=== PATIENT | female | born 1975 | race Caucasian/White ===

== ENCOUNTER 2019-01-04 07:00 | Inpatient (IN) ==
[2019-01-04] MEDS ORDERED: STADOL IV PRN ×2 (19:17)
[2019-01-04] MEDS ORDERED: BRETHINE SUBQ PRN (19:17)
[2019-01-04] MEDS ORDERED: REGLAN PO PRN (19:17)
[2019-01-04] MEDS ORDERED: ZOFRAN IV PRN (19:17)
[2019-01-04] MEDS ORDERED: PEPCID PO PRN ×2 (19:17)
[2019-01-04] MEDS ORDERED: TYLENOL PO PRN (19:17)
[2019-01-04] MEDS ORDERED: PEPCID IV PRN (19:17)
[2019-01-04] MEDS ORDERED: AMBIEN PO PRN (19:17)
[2019-01-04] MEDS: LR 1,000 ML IV SCH (20:30)
[2019-01-04] MEDS ORDERED: CYTOTEC VAG ONE (21:00)
[2019-01-04 21:10] LABS: BASO# 0.06 X1000 (0.0-0.2); BASO% 0.4 % (0.0-0.8); EOS# 0.32 X1000 (0.0-0.7); EOS% 2.1 % (0.0-10.0); HEMATOCRIT 35.7 % (37.0-47.0); IMM GRAN# 0.17 X1000 (0.0-0.04); IMM GRAN% 1.1 % (0.0-0.5); LYMPH# 4.11 X1000 (1.2-3.4); LYMPH% 26.4 % (20.5-51.1); MCH 29.6 PG (27-31); MCHC 33.6 g/dL (33-37); MCV 87.9 FL (81-99); MONO# 1.27 X1000 (0.11-0.59); MONO% 8.2 % (1.7-9.3); NEUT# 9.62 X1000 (1.4-6.5); NEUT% 61.8 % (42.2-75.2); PLT 533 X1000 (130-400); RBC 4.06 XMIL (4.2-5.4); RDW 13.9 % (11.5-14.5); WBC 15.55 X1000 (4.8-10.8)
[2019-01-04] MEDS ORDERED: CYTOTEC ONE (21:55)
[2019-01-05] MEDS: CYTOTEC VAG SCH ×3 (01:55→12:51)
--- NOTE | 2019-01-05 05:24 | HISTORY AND PHYSICAL ---
HISTORY OF PRESENT ILLNESS: The patient is a 43-year-old G4, P2, 0-1-2 at 40 weeks gestation who presents to Labor and Delivery for induction of labor. The patient reports good movement. Denies regular contractions, leakage of fluid or vaginal bleeding. Current complicated by an abnormal quad screen. Patient was followed by Maternal Medicine during , and assessing for growth and abnormalities. The patient was counseled on abnormal quad screen, and offered additional screening using cell free DNA testing. The patient declined, and also declined diagnostic testing. CURRENT MEDICATIONS: Include vitamins. PAST MEDICAL HISTORY: Includes depression and anxiety. PAST SURGICAL HISTORY: None. 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 OBSTETRICAL HISTORY: , 2 term vaginal deliveries, 1 SAB FAMILY HISTORY: non contributory. SOCIAL HISTORY: Denies alcohol, or drug use. Positive tobacco use 1/2 ppd ALLERGIES: Penicillins, unknown reaction. PHYSICAL EXAMINATION: VITAL SIGNS: Temperature 97.1 degrees Fahrenheit, blood pressure 124/85, pulse rate 83, weight 222 pounds, height 5 feet 9 inches, and BMI 32.8 kg/m2. GENERAL: No acute distress. Alert, awake, and oriented x3. CARDIOVASCULAR: Regular rate and rhythm. Positive S1, S2. RESPIRATORY: Clear to auscultation bilaterally. ABDOMEN: Gravid, soft. Nontender to palpation. EXTREMITIES: No calf tenderness. heart rate via Doppler 140 beats per minute. PELVIC: Vaginal exam 0 cm dilated, 0% effaced, and -3 station. LABORATORIES: GBS negative. ASSESSMENT: Mrs. Vieira is a 43-year-old, , at 40 weeks gestation who presents for scheduled induction of labor. PLAN: 1. Admit to Labor and Delivery for planned scheduled induction. We will induce with Cytotec per vagina 25 mcg q.4 hours. Plan for augmentation with possible AROM and Pitocin. 2. Continuous monitoring. 3. Obtain routine labor labs. 4. Pain management with IV pain medications and/or epidural per patient request. 5. Patient counseled on risks and benefits of induction of labor and risk of vaginal delivery which includes things such as bleeding, laceration, need for blood transfusion, and need for emergent section with risk of section discussed in depth with the patient such as bleeding, infection, possible injury to surrounding organs, postoperative pain and disability. The patient expressed understanding. All questions answered and addressed. 6. Estimated weight 8.5 pounds. 7. Anticipate vaginal delivery. 8. Counseled on risks of depression. Will monitor closely GILDA
[2019-01-05] MEDS ORDERED: XYLOCAINE-MPF 1% INJ PRN ×2 (07:13→22:58)
[2019-01-05] MEDS ORDERED: MINERAL OIL TOP PRN (07:13)
[2019-01-05] MEDS ORDERED: FENTANYL-BUPIV-NS 2 MCG-0.1% 250 ML EPIDURAL PRN (07:54)
[2019-01-05] MEDS ORDERED: NAROPIN 0.2% INJ ONE (08:00)
[2019-01-05] MEDS ORDERED: FENTANYL IV ONE (08:00)
[2019-01-05] MEDS: LR 1,000 ML IV SCH (08:14)
[2019-01-05] MEDS: PITOCIN 30 UNITS/NS 30 UNIT/500 ML IV.SOLN IV SCH ×2 (09:59→20:34)
[2019-01-05] MEDS: STADOL IV PRN ×2 (11:55→14:54)
[2019-01-05] MEDS ORDERED: MINERAL OIL PO PRN (22:58)
[2019-01-05] MEDS ORDERED: AMBIEN PO PRN (22:58)
[2019-01-05] MEDS ORDERED: ATARAX PO PRN (22:58)
[2019-01-05] MEDS ORDERED: PITOCIN IM PRN (22:58)
[2019-01-05] MEDS ORDERED: BENADRYL IV PRN (22:58)
[2019-01-05] MEDS ORDERED: PERI MEDS (DERMOPLAST/NUPERCAINAL/TUCKS) MISC PRN (22:58)
[2019-01-05] MEDS ORDERED: BENADRYL PO PRN (22:58)
[2019-01-05] MEDS ORDERED: HYDROXYZINE IM PRN (22:58)
[2019-01-05] MEDS ORDERED: M-M-R II VACCINE SUBQ ONE (22:58)
[2019-01-05] MEDS ORDERED: BOOSTRIX VACCINE IM ONE (22:58)
[2019-01-05] MEDS ORDERED: CYTOTEC PO PRN (22:58)
[2019-01-05] MEDS ORDERED: PITOCIN 20 UNITS/NS 20 UNITS/1,000 ML IV.SOLN IV SCH (23:00)
[2019-01-05] MEDS ORDERED: PITOCIN 30 UNITS/NS 30 UNIT/500 ML IV.SOLN IV SCH (23:00)
[2019-01-06] MEDS: MOTRIN PO PRN ×3 (02:26→20:11)
--- NOTE | 2019-01-06 06:04 | OPERATIVE NOTE ---
PROCEDURE DATE: 01/05/2019 PROCEDURE PERFORMED: Spontaneous vaginal delivery. SURGEON: Dr. Shane Stubbs. PATIENT ASSISTANT: None. DESCRIPTION OF PROCEDURE: The patient delivered a viable male at 40 weeks gestation, weighing 8 pounds 12 ounces with Apgars of 9 and 10 at 1 and 5 minutes respectively. The vertex was delivered spontaneously over intact perineum. A tight nuchal cord was identified, and reduced after delivery of the body. The anterior shoulders were delivered atraumatically by maternal expulsive force efforts with the assistance of downward traction. The posterior shoulder delivered with maternal expulsive efforts and upward traction. The remainder of the fetus delivered spontaneously. Upon delivery, the nuchal cord was reduced. The cord was clamped and cut. The was placed on the patient's abdomen and assessed by the awaiting bar staff staff. Cord blood was obtained for blood gases to enhance uterine contractions. IV oxytocin was administered. The cervix, vagina and perineum were inspected for lacerations. A second-degree laceration was noted at the perineum and repaired with 2-0 chromic. A small vaginal bleed was noted, and hemostasis was obtained using 3-0 chromic in a figure of 8 stitch fashion. ESTIMATED BLOOD LOSS: 200 mL.
[2019-01-06 06:19] LABS: BASO# 0.05 X1000 (0.0-0.2); BASO% 0.3 % (0.0-0.8); EOS# 0.19 X1000 (0.0-0.7); HEMATOCRIT 34.9 % (37.0-47.0); HEMOGLOBIN 11.4 g/dL (12.0-16.0); IMM GRAN# 0.13 X1000 (0.0-0.04); IMM GRAN% 0.7 % (0.0-0.5); LYMPH# 3.37 X1000 (1.2-3.4); LYMPH% 18.6 % (20.5-51.1); MCH 28.9 PG (27-31); MCHC 32.7 g/dL (33-37); MCV 88.4 FL (81-99); MONO# 1.18 X1000 (0.11-0.59); MONO% 6.5 % (1.7-9.3); MPV 9.8 FL (7.4-10.4); NEUT# 13.21 X1000 (1.4-6.5); NEUT% 72.9 % (42.2-75.2); PLT 451 X1000 (130-400); RBC 3.95 XMIL (4.2-5.4); RDW 13.7 % (11.5-14.5); WBC 18.13 X1000 (4.8-10.8)
[2019-01-06] MEDS ORDERED: PERCOCET-5 PO PRN (06:52)
--- NOTE | 2019-01-06 14:28 | OB/GYN PROGRESS NOTE ---
Progress Note OB - . Patient Problems: Current Active Problems Problem Status Onset (spontaneous vaginal delivery) Acute OB Progress Note: Vital Signs - 24 hr 01/05/19 15:27 01/05/19 19:40 01/05/19 20:30 Temperature 96.9 F L 96.2 F L 97.2 F L Pulse Rate 79 76 96 H Respiratory Rate 16 20 20 Blood Pressure 139/79 132/81 124/85 Blood Pressure [Right Arm] 144/88 O2 Sat by Pulse Oximetry 98 100 100 01/05/19 20:40 01/05/19 20:50 01/05/19 21:00 Temperature Pulse Rate 83 75 86 Respiratory Rate 20 20 20 Blood Pressure Blood Pressure [Right Arm] 139/85 139/98 143/85 O2 Sat by Pulse Oximetry 100 100 100 01/05/19 21:10 01/05/19 21:20 01/05/19 21:30 Temperature Pulse Rate 75 74 86 Respiratory Rate 20 20 20 Blood Pressure 146/82 Blood Pressure [Right Arm] 144/83 144/88 146/82 O2 Sat by Pulse Oximetry 100 100 99 01/06/19 00:00 01/06/19 04:31 01/06/19 08:00 Temperature 96.9 F L 96.3 F L 96.5 F L Pulse Rate 106 H 75 87 Respiratory Rate 20 20 18 Blood Pressure 127/83 109/65 108/68 Blood Pressure [Right Arm] O2 Sat by Pulse Oximetry 99 99 98 01/06/19 11:28 Temperature 96.9 F L Pulse Rate 88 Respiratory Rate 18 Blood Pressure 111/74 Blood Pressure [Right Arm] O2 Sat by Pulse Oximetry 98 Laboratory Results - last 24 hr 01/06/19 05:42 WBC 18.13 H RBC 3.95 L Hgb 11.4 L Hct 34.9 L MCV 88.4 MCH 28.9 MCHC 32.7 L RDW Std Deviation 13.7 Plt Count 451 H MPV 9.8 Immature Gran % (Auto) 0.7 H Neut % (Auto) 72.9 Lymph % (Auto) 18.6 L [place] % (Auto) 6.5 Eos % (Auto) 1.0 Baso % (Auto) 0.3 Immature Gran # (Auto) 0.13 H Neut # (Auto) 13.21 H Lymph # (Auto) 3.37 [place] # (Auto) 1.18 H Eos # (Auto) 0.19 Baso # (Auto) 0.05 S: Patient without complaints. Denied fever, chills, N/V, SOB, or chest pain. Pain minimal and controlled. Voiding without difficulty. Lochia decreasing; scant. Formula-feeding by choice. Desires sterilization for contraception. O: Gen: NAD CV: RRR Pulm: CTAB; no rhonchi, wheezing, or rales Abd: soft, non TTP, non distended; active bowel sounds; fundus firm and below umbilicus Ext: no LE TTP Labs: reviewed A&P: 43yo s/p at 40w1d, 1. PPD#1 -No concerns 2. Hx of anxiety/depression -Not on any medications -patient denied psychiatric medical history - consultation ordered to evaluate 3. Tob use -Patient declined in smoking cessation -SIDS risks given 4. Rh NEGATIVE -RhoGAM workup ordered -Baby Rh positive
[2019-01-06] MEDS ORDERED: PERICOLACE PO SCH (21:00)
--- NOTE | 2019-01-07 08:31 | OB/GYN PROGRESS NOTE ---
Progress Note OB - . Patient Problems: Current Active Problems Problem Status Onset (spontaneous vaginal delivery) Acute OB Progress Note: Vital Signs - 24 hr 01/06/19 11:28 01/06/19 16:00 01/06/19 20:14 Temperature 96.9 F L 97.2 F L 96.9 F L Pulse Rate 88 86 73 Respiratory Rate 18 18 18 Blood Pressure 111/74 123/71 128/88 O2 Sat by Pulse Oximetry 98 98 01/07/19 02:04 Temperature 96.9 F L Pulse Rate 70 Respiratory Rate 18 Blood Pressure 97/61 O2 Sat by Pulse Oximetry 98 Laboratory Results - last 24 hr 01/07/19 05:15 ABO/Rh O NEGATIVE Screen NEGATIVE RhIG Candidate? YES S: Patient without complaints. No changes since yesterday. Lochia decreasing; scant. Formula-feeding by choice. Desires sterilization for contraception. O: Gen: NAD CV: RRR Pulm: CTAB; no rhonchi, wheezing, or rales Abd: soft, non TTP, non distended; active bowel sounds; fundus firm and below umbilicus Ext: no LE TTP Labs: reviewed A&P: 43yo s/p at 40w, 1. PPD#2 -No concerns -D/C home today and f/u with Dr. Stubbs in about 4 weeks - precautions discussed and when to call clinic 2. Hx of anxiety/depression -Not on any medications -patient denied psychiatric medical history -s/p SW consultation 3. Tob use -Patient declined in smoking cessation -SIDS risks given 4. Rh NEGATIVE -RhoGAM workup ordered -Baby Rh positive
[2019-01-07 08:40] VITALS: BP 136/90
[2019-01-07] MEDS ORDERED: PRECARE PO SCH (09:00)
[2019-01-07] MEDS ORDERED: PNEUMOVAX 23 IM ONE (12:30)
--- NOTE | 2019-01-07 16:36 | DISCHARGE SUMMARY ---
ADMISSION DATE: 01/04/2019 DISCHARGE DATE: 01/07/2019 DIAGNOSIS ADMISSION: 1. 43-year-old G4, P3-0-1-3, status post spontaneous vaginal delivery at 40 weeks. 2. History of depression, anxiety and psychosis status post social work consultation. 3. Tobacco use. The patient declined cessation. 4. Rh negative. RhoGAM . HOSPITAL COURSE: This is a 43-year-old now G4, P3-0-1-3, now was admitted for elective induction of labor. This is a patient of Dr. Stubbs. The patient has a history of tobacco use and is also Rh negative. The patient also has a history of anxiety and depression and had a history of psychosis in which in which she was admitted to psychiatric figueroa at [facility]. The patient had a spontaneous vaginal delivery on 02/01/2019, in which she delivered a live male at 40 weeks, weighing 8 pounds 12 ounces. The patient had a second- degree laceration which was repaired. course was complete without complications. 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 The patient was bottle feeding by choice and desired sterilization for contraception. The patient was subsequently discharged with precautions given and recommendation to follow up with Dr. Stubbs in approximately 4 weeks. LABORATORY: Pre delivery hemoglobin and hematocrit 12.0/35.7, post-delivery hemoglobin and hematocrit 11.4/ 34.9, platelet count 451,000, RPR nonreactive. DISCHARGE DIET: Regular. DISCHARGE DISPOSITION: Stable. DISCHARGE MEDICATIONS: Colace 1 tab at bedtime p.r.n. ,ibuprofen 800 mg q.8 hours p.r.n. and [place] 1 tab q.6 hours p.r.n., dispense #[address] Hernandez. [facility]
== END 2019-01-07 14:20 | disposition home or self-care (01) | DRG 807 ==
LOC: P.LD 18:25
PROVIDERS: ADMIT Student in an Organized Health Care Education/Training Program; ATTEND Obstetrics & Gynecology